=== PATIENT | male | born 1965 | race Two or more races ===

== ENCOUNTER 2020-05-14 16:22 | Observation (INO) | payer BC ==
[2020-05-14] MEDS ORDERED: ASPIRIN 325 MG TAB ONE (16:37)
[2020-05-14] MEDS ORDERED: ASPIRIN 325 MG TAB PO ONE (16:40)
[2020-05-14] MEDS ORDERED: SODIUM CHLORIDE 0.9% 1,000 ML IV ONE (16:49)
[2020-05-14] MEDS ORDERED: VERAPAMIL 2.5 MG/ML 2 ML AMP ONE (17:01)
[2020-05-14] MEDS ORDERED: LIDOCAINE 1% INJ 10MG/ML (20 ML MDV) ONE (17:01)
[2020-05-14] MEDS ORDERED: fentaNYL (PF) 50 MCG/ML 2 ML AMP ONE (17:11)
[2020-05-14] MEDS ORDERED: fentaNYL (PF) 50 MCG/ML 2 ML AMP IVP ONE (17:11)
[2020-05-14] MEDS ORDERED: LIDOCAINE 1% INJ 10MG/ML (20 ML MDV) SQ ONE (17:13)
[2020-05-14] MEDS ORDERED: HEPARIN SODIUM 1,000 UN/ML (10ML VL) ONE (17:15)
[2020-05-14] MEDS ORDERED: VERAPAMIL SYRINGE (5 MG/10 ML) INTRAARTER ONE ×2 (17:15→17:32)
[2020-05-14] MEDS ORDERED: HEPARIN SODIUM 1,000 UN/ML (10ML VL) IV ONE (17:16)
[2020-05-14] MEDS ORDERED: IOPAMIDOL-370 125ML BTL INJ ONE (17:41)
[2020-05-14] MEDS ORDERED: RX INFO: IV CONTRAST WAS GIVEN 1 EACH MISC MISCELLANE PRN (18:05)
[2020-05-14] MEDS ORDERED: SODIUM CHLORIDE 0.9% 1,000 ML IV SCH (18:15)
--- NOTE | 2020-05-14 18:33 | CC ---
CARDIAC CATHETERIZATION REPORT DATE OF SERVICE: 05/14/2020 PERFORMING PHYSICIAN: Ezequiel Singh M.D. PROCEDURE PERFORMED: Selective right and left coronary angiogram. INDICATION: This is a 54-year-old gentleman with dyslipidemia who was experiencing symptoms of shortness of breath. He underwent coronary calcium scoring, which was abnormal, showing extreme/dense calcifications involving the left main distally. Because of that, heart catheterization was advised. APPROACH: Right radial artery. COMPLICATIONS: None. LEVEL OF SEDATION: Moderate. PROCEDURE DESCRIPTION: After obtaining informed consent, the patient was brought to the cardiac starch factory laborer. The right radial artery was cannulated using micropuncture technique. The micropuncture wire passed easily. Then I placed a 6-Setswana sheath at the right radial artery. Two mg of verapamil IA and 6000 of heparin IV. Subsequently I did selective right and left coronary angiogram using JR4 and JL3.5 catheters. The procedure was completed without any complication. SELECTIVE CORONARY ANGIOGRAM: 1. The right coronary artery is a large-caliber vessel. It is a dominant vessel. It appeared to be angiographically normal. It distally bifurcates into PDA and PLV branches; both appeared to be angiographically normal. 2. The left main is angiographically normal. It bifurcates into LCX and LAD. 3. The LCX is a large-caliber vessel. It is a nondominant vessel. The LCX proximally is angiographically normal. It gives rise to a large OM which appeared to be angiographically normal. The mid left circumflex appeared to be angiographically normal. The left circumflex distally appeared to have a tight lesion in the range of 70% to 80%, but this is just in the distal AV groove. The artery at that point becomes a small-caliber vessel. 4. The LAD. The proximal LAD has 2 tandem lesions that appeared to be in the range of 80%. The proximal to mid LAD has another lesion that appeared to be in the range of 90%. The LAD in the proximal portion gives rise to a diagonal branch which is a large-caliber vessel and appeared to have mild ostial disease. The LAD distally appeared to be angiographically normal. CONCLUSION: 1. Severe disease involving the proximal LAD and proximal to mid LAD by the bifurcation of a large diagonal branch. 2. Severe disease involving the distal left circumflex in the AV groove. POST-PROCEDURE MANAGEMENT: 1. Given the above anatomy, I advise at this point maximized medical treatment. 2. I would advise also obtaining a consult from the cardiothoracic surgeon. 3. Follow up with the patient. ELIOT / LORETTA: [id number] /
[2020-05-14] MEDS: ATORVASTATIN 40 MG TAB PO SCH (20:51)
[2020-05-14] MEDS ORDERED: ASPIRIN 81 MG PO SCH (21:00)
[2020-05-15] MEDS ORDERED: ACETAMINOPHEN TAB 325 MG TAB PO STA (04:46)
[2020-05-15] MEDS ORDERED: LIDOCAINE 1% INJ 10MG/ML (20 ML MDV) ONE ×2 (07:23→08:31)
[2020-05-15] MEDS ORDERED: fentaNYL (PF) 50 MCG/ML 2 ML AMP ONE (07:29)
[2020-05-15] MEDS ORDERED: IV FLUID CONTINUATION 900 ML IV ONE (07:30)
[2020-05-15] MEDS ORDERED: MIDAZOLAM 2 MG/2 ML VIAL IV ONE (07:34)
[2020-05-15] MEDS ORDERED: fentaNYL (PF) 50 MCG/ML 2 ML AMP IV ONE (07:36)
[2020-05-15] MEDS ORDERED: LIDOCAINE 1% INJ 10MG/ML (20 ML MDV) SQ ONE ×3 (07:36→08:32)
[2020-05-15] MEDS ORDERED: niCARdipine 25 MG/10 ML VIAL ONE (07:44)
[2020-05-15] MEDS ORDERED: BIVALIRUDIN BOLUS 250 MG/50 ML IV ONE (07:45)
[2020-05-15] MEDS ORDERED: BIVALIRUDIN 250 MG in SODIUM CHLORIDE 0.9% 50 ML IV ONE (07:45)
[2020-05-15] MEDS ORDERED: TICAGRELOR 90 MG TAB ONE (07:51)
[2020-05-15] MEDS: niCARdipine Syringe (1,000 mcg/10 mL) INTRACORON ONE ×3 (07:59→08:28)
[2020-05-15] MEDS: NITROGLYCERIN 1000MCG/10ML SYRINGE INTRACORON ONE ×3 (07:59→08:27)
[2020-05-15] MEDS ORDERED: IOPAMIDOL-370 125ML BTL INJ ONE (08:06)
[2020-05-15] MEDS ORDERED: TICAGRELOR 90 MG TAB PO ONE (08:10)
[2020-05-15] MEDS ORDERED: IOPAMIDOL-370 100ML BTL INJ ONE ×2 (08:32)
[2020-05-15] MEDS ORDERED: RX INFO: IV CONTRAST WAS GIVEN 1 EACH MISC MISCELLANE PRN (08:51)
[2020-05-15] MEDS ORDERED: MAG HYDROX/AL HYDROX/SIMETH 30 ML CUP PO PRN (08:51)
[2020-05-15] MEDS ORDERED: ATROPINE SULFATE 0.1 MG/ML 10ML SYRINGE IV PRN (08:51)
[2020-05-15] MEDS ORDERED: NITROGLYCERIN SL TABS 0.4 MG TAB SUBLINGUAL PRN (08:51)
[2020-05-15] MEDS ORDERED: ZOLPIDEM 5 MG TAB PO PRN (08:51)
[2020-05-15] MEDS ORDERED: SODIUM CHLORIDE 0.9% 1,000 ML IV SCH (09:00)
[2020-05-15] MEDS ORDERED: METOPROLOL TARTRATE 25 MG TAB PO SCH (09:00)
[2020-05-15] MEDS: ASPIRIN 81 MG PO SCH (09:18)
[2020-05-15] MEDS: METOPROLOL SUCCINATE (ER) 25 MG TAB.ER.24H PO SCH (09:30)
[2020-05-15] MEDS ORDERED: ACETAMINOPHEN TAB 325 MG TAB PO PRN (09:46)
--- NOTE | 2020-05-15 10:01 | PTCA ---
PERCUTANEOUSTRANS CORORONARY ANGIOGRAPHY DATE OF SERVICE: 05/15/2020 PERFORMING PHYSICIAN: Ezequiel Singh MD. PROCEDURE PERFORMED: 1. Successful stenting of the mid left anterior descending artery using 3.0 x 38 mm Xience drug-eluting stent with an excellent angiographic results and reduction of stenosis from 99% to 0%. 2. Successful stenting of the proximal left anterior descending artery using 3.5 x 15 mm Xience drug-eluting stent with an excellent angiographic results and reduction of stenosis from 90% to 0%. 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 APPROACH: Right common femoral artery. COMPLICATION: None. LEVEL OF SEDATION: Moderate with sedation length of 59 minutes. PROCEDURE DESCRIPTION: After obtaining an informed consent, the patient was brought to the cardiac sanitation laborer. The right common femoral artery was cannulated using micropuncture technique, the micropuncture wire passed easily then I placed a 6-Czech sheath at the right common femoral artery. Before I placed the sheath, I did predilatation using 5-Czech and then 7-Czech dilator. After that, anticoagulation was initiated using Angiomax. I did engage the left main using JL4 guide. I did wire the LAD using a Whisper wire. Predilatation was performed using 2.0 x 20 mm balloon. The balloon was inflated multiple times in the proximal and mid LAD under 10 atmospheres for 20 seconds. After that I did stenting of the mid left anterior descending artery. In the mid LAD, I deployed 3.0 x 38 mm Xience drug-eluting stent where the stent was positioned under fluoroscopy guidance and deployed under its nominal pressure. For the proximal LAD, I deployed 3.5 x 15 mm Xience drug-eluting stent where the stent also was positioned under fluoroscopy guidance and deployed under its nominal pressure with about 2 mm overlap between the first and second stents. Post dilatation was achieved initially using 3.25 mm balloon and subsequently using 3.5 mm balloon. The final angiogram showed good angiographic results and the procedure was completed without any complication. After that, I did selective right common femoral artery angiogram. I did finally close the groin using the Perclose device with good hemostasis by the end. POSTPROCEDURE MANAGEMENT: 1. Dual anti-platelet therapy. 2. Aggressive cholesterol control. 3. Risk factor modifications. 4. Follow up with the patient. MMODL / IJN: [id number] /
[2020-05-15 11:50] VITALS: BMI 29.0
[2020-05-15] MEDS: TICAGRELOR 90 MG TAB PO SCH (20:19)
[2020-05-15] MEDS: ATORVASTATIN 40 MG TAB PO SCH (20:19)
[2020-05-16 06:56] VITALS: BP 125/74; PULSE 86; RESP 18; TEMP 98
[2020-05-16] MEDS: ASPIRIN 81 MG PO SCH (08:07)
[2020-05-16] MEDS: TICAGRELOR 90 MG TAB PO SCH (08:08)
[2020-05-16] MEDS: METOPROLOL SUCCINATE (ER) 25 MG TAB.ER.24H PO SCH (08:12)
[2020-05-16 10:56] LABS: Basophils # (A) 0.05 X 10*3/uL (0.00-0.10); Basophils % (A) 0.6 %; Eosinophils # (A) 0.12 X 10*3/uL (0.04-0.35); Eosinophils % (A) 1.5 %; HCT 43.2 % (39.6-50.0); HGB 14.4 g/dL (13.0-17.0); Lymphocytes # (A) 2.29 X 10*3/uL (0.90-5.00); Lymphocytes % (A) 28.7 %; MCH 30.4 pg (27.0-32.0); MCHC 33.3 g/dL (32.0-37.0); MCV 91.3 fL (80.0-97.0); Mean Platelet Volume 9.7 fL (9.5-12.2); Monocytes # (A) 0.61 X 10*3/uL (0.20-1.00); Monocytes % (A) 7.6 %; Neutrophils # (A) 4.88 X 10*3/uL (1.80-7.70); Neutrophils % (A) 61.2 %; Platelet Count 238 X 10*3/uL (140-440); RBC 4.73 X 10*6/uL (4.40-5.60); RDW 12.6 % (11.5-14.5); WBC 7.98 X 10*3/uL (4.50-10.00)
[2020-05-16 11:07] LABS: African American GFR (CKD) 116.6 (60.0-200.0); Non-African American GFR(CKD) 100.6 (60.0-200.0); Potassium 4.7 mmol/L (3.5-5.5)
--- NOTE | 2020-05-16 11:57 | DS ---
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 The heart catheterization revealed severe disease involving the proximal LAD and critical disease involving the mid LAD. The following day he underwent successful stenting of the proximal and mid left anterior descending artery using two drug-eluting stents with an excellent angiographic result and without any complication from right groin approach. He was seen this morning. The right groin is soft and nontender and without any bruises. The right radial artery site is excellent as well with great pulse. He is going to be discharged home on dual anti-platelet therapy along with high intensity statin along with beta karina with Toprol-XL. He will be seen as an outpatient. ELIOT / LORETTA: [id number] /
== END 2020-05-16 10:05 | disposition home or self-care (01) ==
LOC: CATHCVL 16:22 → 6NMEDSUR 17:50 → CATHCVL 05-15 13:09
PROVIDERS: ADMIT Internal Medicine Interventional Cardiology; ATTEND Internal Medicine Interventional Cardiology
DX: I25.10 Atherosclerotic heart disease of native coronary artery without angina pectoris (principal); R06.02 Shortness of breath; E78.5 Hyperlipidemia, unspecified; E78.00 Pure hypercholesterolemia, unspecified
CPT/HCPCS: 93005 ×2; 93454; 80048; 85025; G0378 ×2; C9600; C1769 ×5; C1887; C1725 ×4; C1894 ×2; C1760; C1874; J2250; J2001 ×2; J3010 ×2; J1644; J0583; Q9967 ×3